=== PATIENT | female | born 1990 | race Caucasian/White ===

== ENCOUNTER 2019-05-14 20:47 | Emergency (ER) | payer MEDICAID, OTHER ==
[2019-05-14 21:34] VITALS: O2SAT 100
--- NOTE | 2019-05-14 22:26 | ERPHSYRPT ---
- History of Present Illness Time Seen by Provider: 05/14/19 22:00 Source: patient Exam Limitations: no limitations Patient Subjective Stated Complaint: Patient states " I went with my friend to get piercings and I saw blood and I passed out" Patient states that she hit her left eye but not sure what she hit it on. Triage Nursing Assessment: Patient arrived to ER per self. Patient A/O times 4. Patient able to answer questions appropriatley. Patient with laceration above left eye. Laceration measures 1.0 X 0.2 X 0.2. Small amounts of bleeding noted. No bruising apparent at this time. Mild edema noted. Patient states area is lee sore but she wasnt experiencing any pain. Bilateral pupils equal and reactive to light. Patient denies dizziness, nausea and vomiting. Patient denies SILVA. 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 No S/S of infection noted to laceration. Physician History: 28 years old female presented in the ER with chief complaint of left eyebrow laceration. Patient was at a piercing shop, saw blood and passed out, fell and hit her left eyebrow area against the chair. She woke up with no confusion or seizure-like activity. There was bleeding initially but stopped after applying pressure. She does not have any pain with movements of eyeball itself. No headache. No blurry vision. No numbness tingling or focal weakness. Patient reports she cannot tolerate seeing blood. SHe also has a small laceration left lower chin area. Up to date with tetanus Timing/Duration: today Severity: mild Allergies/Adverse Reactions: amoxicillin [Amoxicillin] Allergy (Verified 05/14/19 21:33) Hx Tetanus, Diphtheria Vaccination/Date Given: Yes Hx Influenza Vaccination/Date Given: No Hx Pneumococcal Vaccination/Date Given: No Immunizations Up to Date: Yes - Review of Systems Constitutional: No Symptoms Eyes: No Symptoms Ears, Nose, & Throat: No Symptoms Respiratory: No Symptoms Cardiac: No Symptoms Abdominal/Gastrointestinal: No Symptoms Genitourinary Symptoms: No Symptoms Musculoskeletal: No Symptoms Neurological: No Symptoms Psychological: No Symptoms Endocrine: No Symptoms Hematologic/Lymphatic: No Symptoms Immunological/Allergic: No Symptoms - Past Medical History Pertinent Past Medical History: No Neurological History: No Pertinent History ENT History: No Pertinent History Cardiac History: No Pertinent History Respiratory History: No Pertinent History Endocrine Medical History: No Pertinent History Musculoskeletal History: No Pertinent History GI Medical History: No Pertinent History History: No Pertinent History Psycho-Social History: No Pertinent History Female Reproductive Disorders: No Pertinent History - Past Surgical History Past Surgical History: No - Social History Smoking Status: Never smoker Exposure to second hand smoke: No Drug Use: none Patient Lives Alone: No - Female History Hx Last Menstrual Period: Implant Hx Now: No - Nursing Vital Signs Nursing Vital Signs: Initial Vital Signs Temperature 97.6 F 05/14/19 21:15 Pulse Rate 73 05/14/19 21:15 Respiratory Rate 16 05/14/19 21:15 Blood Pressure 88/61 05/14/19 21:15 O2 Sat by Pulse Oximetry 100 05/14/19 21:15 Pain Scale Pain Intensity 2 - Physical Exam General Appearance: no apparent distress Eye Exam: PERRL/EOMI, other (2.5 cm superficial laceration on lateral aspect of left eyebrow with no active bleeding or spurting. Intact movements of upper lid ) Ears, Nose, Throat Exam: TMs normal, pharynx normal, other (Half centimeter laceration left lower chin with no active bleeding or spurting.) Neck Exam: normal inspection, non-tender, supple, full range of motion Respiratory Exam: normal breath sounds, lungs clear Cardiovascular Exam: regular rate/rhythm, normal heart sounds Gastrointestinal/Abdomen Exam: soft, normal bowel sounds Back Exam: normal inspection Extremity Exam: normal inspection, normal range of motion Neurologic Exam: alert, oriented x 3, cooperative, psychotherapist social worker II-XII nml as tested, normal mood/affect, nml cerebellar function, nml station & gait, sensation nml Skin Exam: normal color SpO2 Interpretation: normal SpO2: 100 O2 Delivery: Room Air Procedures - Laceration/Wound Repair Left Eye Wound Location: Left Wound Length (cm): 2.5 Wound's Depth, Shape: superficial Wound Explored: no foreign body noted Irrigated: Yes Hibiclens Prep: Yes Wound Repaired With: Steri-strips, Dermabond - Course Nursing assessment & vital signs reviewed: Yes - Progress Progress: improved, re-examined Progress Note: 05/14/19 22:25 28 years old is evaluated after syncopal episode and fall with trauma to left eyebrow. She is offered work-up for syncope including CT head but she refused. She understands the risk of not doing work-up which could be internal bleed leading to fatal outcome. She does not want stitches but Steri-Strip and Dermabond. Chin laceration was also repaired with Dermabond and Steri-Strips. Discussed with patient before repair about possibility of muscular injury to the upper lid which could be permanent and could lead to defect which he understands and wants to go ahead with laceration repair with Dermabond. 05/14/19 22:39 Counseled pt/family regarding: diagnosis, need for follow-up - Departure Departure Disposition: Home Clinical Impression: Syncope and collapse Laceration of eyebrow, left Qualifiers: Encounter type: initial encounter Qualified Code(s): S01.112A - Laceration without foreign body of left eyelid and periocular area, initial encounter Chin laceration Qualifiers: Encounter type: initial encounter Qualified Code(s): S01.81XA - Laceration without foreign body of other part of head, initial encounter Condition: Stable Critical Care Time: No Referrals: BOAZ PASCAL MD [Primary Care Provider] - (2 DAYS FOR RE EVALUATION) Instructions: Laceration Repair With Glue (DC), Syncope (Fainting) (DC) Additional Instructions: Take Tylenol as needed. Follow-up with primary care for reevaluation. Keep it clean. Return to ER for intractable headache, blurry vision, vomiting, numbness tingling or weakness.
[2019-05-14 22:52] VITALS: BP 145/85; PULSE 95
== END 2019-05-14 23:13 | disposition home or self-care (01) ==
LOC: ED 20:47
DX: S01.112A Laceration without foreign body of left eyelid and periocular area, initial encounter (principal); S01.81XA Laceration without foreign body of other part of head, initial encounter; W01.10XA Fall on same level from slipping, tripping and stumbling with subsequent striking against unspecified object, initial encounter
CPT/HCPCS: 12011; 99283